=== PATIENT | female | born 1965 | race Caucasian/White ===

== ENCOUNTER 2020-05-09 12:49 | Inpatient (IN) | payer BC ==
[~2020-05-09] VITALS: Ht 162.7 cm; Wt 71.0 kg
[2020-07-27] VITALS (13 sets, daily range): BP systolic 104–158; BP diastolic 55–74; PULSE 55–90; TEMP 97.8–98.9
[2020-07-27] MEDS ORDERED: PEPCID40 MG PO (03:06)
[2020-07-27] MEDS ORDERED: COZAAR100 MG PO (03:09)
[2020-07-27] MEDS ORDERED: CRESTOR 10MG10 MG PO (03:10)
[2020-07-27] MEDS ORDERED: DESYREL 50MG50 MG PO (03:10)
--- NOTE | 2020-07-27 10:39 | NUR ---
PT TO ROOM 332 PER BED WITH REPORT FROM LEILA DING PACU @1000. PT IS A/O X3, LUNGS CTA, BOWEL SOUNDS HYPO, DRESSING TO LEFT KNEE CDI WITH OCCLUSIVE GARRETT WRAP OVER BULKY DRESSING. SCDS PLACED BILATERALLY. IV TO PUMP PER ORDERS. ICE WATER PROVIDED. PT DENIES PAIN OR NEEDS AT THIS TIME.
--- NOTE | 2020-07-27 11:40 | NUR ---
First visit from the blend technician. No needs right now.
--- NOTE | 2020-07-27 11:45 | NUR ---
Flasher Adjuster met with patient to discuss discharge planning. Patient lives in [place] with her , Sharon (ph#[phone]) who is at bedside. Patient sees NGUYỄN Sánchez for primary care and obtains medications from [facility] with no difficulties. Patient does not use any DME and reports independence with ADLS. Patient has a living will but does not have DPOA-HC. Patient is not interested in designating DPOA-HC at this time. Patient plans to return home at discharge and reports her , Sharon will be home to assist her as needed. SW will continue to follow.
--- NOTE | 2020-07-27 13:42 | NUR ---
PT REPORTING INCREASING PAIN. PRN PAIN MEDS GIVEN ORDERED.
--- NOTE | 2020-07-27 15:53 | NUR ---
PT UP TO RECLINER WITH SBA X1. PT REPORTS INCONTENENT BLADDER X2. PT CHANGED AND PERICARE PROVIDED. PT REPORTS NO PRIOR INCONTENECE ISSUES. MILD NAUSEA ON MOVEMENT.
--- NOTE | 2020-07-27 17:17 | NUR ---
BLADDER SCANNED PT AND FOUD OVER 500 MLS IN BLADDER. STRAIGHT CATH PRODUCED 850 MLS, PT EXPRESSED IMMEDIATE RELIEF. CALLED RESULTS TO DR. WELSH. MAY STRAIGHT CATH AGAIN IF PT UNABLE TO VOID.
--- NOTE | 2020-07-27 20:30 | NUR ---
PT RESTING IN BED. LT KNEE PAIN LEVEL 05/30. REPOSITIONED LLE. PLACED ICEPACK. FLOATED HEEL. SEE MAR FOR MS 2MG IV. ASSISTED PT UP TO BR WITH WALKER. VOIDED SUFFICIENT AMTS CLEAR YELLOW URINE. BACK BED. CALL LIGHTIN REACH. BED ALARM SET.
--- NOTE | 2020-07-28 00:45 | NUR ---
NOTIFIED Jazz AVITIA REGARDING UNRELIEVED PAIN LT KNEE. STARTED NORCO 7.5MG. SEE MAR
--- NOTE | 2020-07-28 04:09 | NUR ---
PT SLEEPING. NO RESP DISTRESS. NO EVIDENCE OF PAIN.
[2020-07-28 05:26] VITALS: BP 169/80; PULSE 106; TEMP 99.1
--- NOTE | 2020-07-28 05:32 | NUR ---
PT HAS HAD A DIFFICULT TIME WITH PAIN CONTROL. MAINTAINED GOOD NEUROVASCULAR CHECKS. NO DRAINAGE NOTED THROUGH DRSG. SEE MAR FOR PAIN MEDS GIVEN THIS SHIFT. PT HAS VOIDED SUFFICIENT AMTS X3 THIS SHIFT CLEAR YELLOW. TOOK 2:1 TRANSFER TO BSC WITH WALKER. NOT TOLERATING ACTIVITY WELL. WILL CONTINUE TO MONITOR. REFRESHED ICE PACK SEVERLA TIMES. CALL LIGHT IN REACH. BED ALARM SET.
[2020-07-28 07:16] VITALS: BP 166/82; PULSE 106; TEMP 99.6
[2020-07-28 07:57] LABS: HEMOGLOBIN 11.2 g/dl (12.5-16.0)
[2020-07-28 08:01] LABS: HEMATOCRIT 33.7 % (37.0-47.0)
--- NOTE | 2020-07-28 08:22 | NUR ---
PT UP IN RECLINER FOR BREAKFAST. PO PAIN MEDS GIVEN WITH OTHER AM MEDS ORDERED. DRESSING TO LEFT KNEE CDI WITH OCCLUSIVE GARRETT WRAP IN PLACE. PT RATING PAIN 10/10.
[2020-07-28 11:52] VITALS: BP 150/85; PULSE 112; TEMP 98.5
--- NOTE | 2020-07-28 16:14 | NUR ---
Tumbling Machine Operator followed up with patient and , Sharon who reports patient had a rough evening with pain. Patient confirmed she has a walker at home for recovery. Patient will not discharge today and SW will continue to follow.
[2020-07-28 16:57] VITALS: BP 153/74; PULSE 90; TEMP 98.6
--- NOTE | 2020-07-28 21:00 | NUR ---
Pt. laying in bed at this time. Pt. is A&OX3, assessment complete. INT to rt. hand patent. Pt. reports pain at a 6 on pain scale, gave pain meds per orders. Dressing to lt. knee CDI. Pt. denies further needs, call light within reach.
[2020-07-28 21:20] VITALS: BP 135/75; PULSE 92; TEMP 98.2
[2020-07-29 04:54] VITALS: BP 118/67; PULSE 97; TEMP 98.6
--- NOTE | 2020-07-29 08:00 | NUR ---
PATIENT IS A&O. VSS. RATES PAIN IN LLE AT 4-5 ON PAIN SCALE WITH ACTIVITY. GAVE PRN ROXICODONE, TWO TABS BEFORE AM THERAPY. LTK DRESSING IS CD&I WITH AQUACEL AND ICE PACK INPLACE. TEDS & SCD'S TO BLE. POSITIVE PEDAL PULSES TO BLE. PATIENT EAT/DRINK/VOIDING SUFFICENT AMOUNTS. NO C/O N/V. RIGHT HAND IV TO INT. HEAD TO TOE ASSESSMENT WNL. NO OTHER NEEDS. CALL LIGHT IN REACH.
[2020-07-29 08:27] VITALS: BP 135/53; PULSE 94; TEMP 99
--- NOTE | 2020-07-29 11:00 | NUR ---
DR.CHASE MOSCOSO, SEE ORDERS.
[2020-07-29] MEDS ORDERED: ASPI325T6 PO (11:26)
[2020-07-29] MEDS ORDERED: NORCO 325 MG-7.1 TAB PO (11:26)
[2020-07-29] MEDS ORDERED: ROXICODONE 55 MG/TAB PO (11:27)
[2020-07-29] MEDS ORDERED: SENOKOT S 50 MG1 TAB PO (11:27)
[2020-07-29 11:45] VITALS: BP 112/56; PULSE 89; TEMP 98.3
--- NOTE | 2020-07-29 15:00 | NUR ---
PATIENT DISCHARGING VIA WC TO PERSONAL VEHICLE WITH HER . GAVE DISCHARGE INSTRUCTIONS, SCRIPTS SENT ELECTRONICALLY, AND F/U APTS DISCUSSED. ANSWERED ALL QUESTIONS/CONCERNS. DC'D RIGHT HAND IV, COVERED SITE WITH GAUZE & BANDAID. PATIENT'S TAKING BELONGINGS TO CAR. PATIENT ESCORTED OUT.
== END 2020-07-29 15:00 | disposition home or self-care (01) | DRG 470 ==
LOC: JCC 07-27 05:24
PROVIDERS: ADMIT Orthopaedic Surgery
PROC: 0SRD0J9 Replacement of Left Knee Joint with Synthetic Substitute, Cemented, Open Approach (ICD-10-PCS; principal; 2020-07-27 07:30)
DX: M17.12 Unilateral primary osteoarthritis, left knee (principal)
CPT/HCPCS: A9284; C1776; J0690; J2270; J2405; J2704; J7030; J7120